=== PATIENT | male | born 2000 | race Caucasian/White ===

== ENCOUNTER 2022-02-28 05:44 | Emergency (ER) | payer OTHER ==
[~2022-02-28 05:44] MED LIST: NORCO 5-325 TA1 EACH PO; PERCOCET 5/325 T1 EA PO; ZOFRAN4 MG PO
[2022-02-28 06:32] LABS: HEMOGLOBIN 16.8 gm/dl (14.0-17.5); RED BLOOD COUNT 5.4 M/UL (4.20-5.50); WHITE BLOOD COUNT 12.1 K/UL (4.5-11.0)
[2022-02-28 07:02] LABS: BUN/CREATININE RATIO 23 (0-10)
[2022-02-28] MEDS ORDERED: ZOFRAN ODT 4 MG4 MG PO (10:08)
== END 2022-02-28 10:25 | disposition home or self-care (01) ==
LOC: ER1 05:44
PROVIDERS: Physician Assistant
DX: R11.2 Nausea with vomiting, unspecified (principal); R19.7 Diarrhea, unspecified; R07.89 Other chest pain
CPT/HCPCS: 71045; 80053; 81001; 82550; 82553; 83690; 84484; 85025; 93005; 96374; 96375; 99285; J2405; J2550